=== PATIENT | female | born 1945 | race Caucasian/White ===

== ENCOUNTER 2020-05-18 10:41 | Emergency (ER) | payer MEDICARE, OTHER ==
--- NOTE | 2020-05-18 11:44 | ER Document Report ---
HPI - HPI Time Seen by Provider: 05/18/20 11:37 Notes: 74-year-old female patient presenting to the emergency department with complaints of left wrist pain. She states yesterday morning she tripped over her dog and fell backwards onto her outstretched arm. She did hit her head but denies any loss of consciousness or headache. She does take daily aspirin but does not take any other blood thinners. She is also complaining of pain near her tailbone. She declines any pain medications at this time. - ROS Systems Reviewed and Negative: Yes All other systems reviewed and negative - MUSCULOSKELETAL Musculoskeletal: REPORTS: Extremity pain Past Medical History - General Information source: Patient - Social History Smoking Status: Never Smoker Family History: Reviewed & Not Pertinent - Medical History Medical History: Negative Surgical Hx: Negative Vertical Provider Document - CONSTITUTIONAL Notes: PHYSICAL EXAMINATION: GENERAL: Well-appearing, well-nourished and in no acute distress. HEAD: Atraumatic, normocephalic. EYES: Pupils equal round extraocular movements intact, conjunctiva are normal. ENT: Nares patent no hemotympanum, no raccoon eyes, no daigle sign., NECK: Normal range of motion, no vertebral tenderness. LUNGS: No respiratory distress Musculoskeletal: Slightly limited range of motion to left wrist, normal sensation, strong radial pulse. Slight swelling and erythema noted. NEUROLOGICAL: Normal speech, normal gait. PSYCH: Normal mood, normal affect. SKIN: Warm, Dry, normal turgor, no rashes or lesions noted. Course - Re-evaluation Re-evalutation: Head CT 05/18/20 11:43 IMPRESSION: 1. No acute intracranial abnormality. 2. Chronic mild small vessel ischemic changes and atrophy. 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 EVIDENCE OF ACUTE STROKE: NO Wrist X-Ray 05/18/20 11:44 IMPRESSION: 1. No acute osseous findings. If symptoms persist, follow-up examination is suggested for re- evaluation. - Vital Signs Vital signs: Temp Pulse Resp BP Pulse Ox 98.2 F 95 20 127/70 H 100 05/18/20 11:07 05/18/20 11:07 05/18/20 11:07 05/18/20 11:07 05/18/20 11:07 Procedures - Immobilization Left wrist Pre-Proc Neuro Vasc Exam: Normal Immobilizer type: Cock-up Performed by: PCT Post-Proc Neuro Vasc Exam: Normal Discharge - Discharge Clinical Impression: Contusion of left wrist Qualifiers: Encounter type: initial encounter Qualified Code(s): S60.212A - Contusion of left wrist, initial encounter Head injury Qualifiers: Encounter type: initial encounter Qualified Code(s): S09.90XA - Unspecified injury of head, initial encounter Condition: Stable Disposition: HOME, SELF-CARE Additional Instructions: The CAT scan of your head was negative for any acute findings to include brain bleeding or skull fracture. The x-ray of your wrist also showed no fracture or dislocation of any bones. You likely suffered a sprain or contusion. Ice the area, elevate, take ibuprofen or Tylenol as needed for pain. Follow-up with your primary care provider in 3 to 5 days if pain not improving. Wear the brace this should help with comfort and support. Referrals: [facility]AL[facility],NO [Primary Care Provider] - Follow up as needed
--- NOTE | 2020-05-18 12:21 | RADIOLOGY REPORT (SQ) ---
EXAM DESCRIPTION: CT HEAD WITHOUT IMAGES COMPLETED DATE/TIME: 05/18/2020 12:02 pm REASON FOR STUDY: fall, hit head on cabinet COMPARISON: None. TECHNIQUE: Axial images acquired through the brain without intravenous contrast. Images reviewed wi th bone, brain and subdural windows. Additional sagittal and coronal reconstructions were generated. Images stored on PACS. All CT scanners at this facility use dose modulation, iterative reconstruction, and/or weight based d osing when appropriate to reduce radiation dose to as low as reasonably achievable (ALARA). [facility]: Dose Right [facility]: CareDose [facility]: Dose Right [facility]: Teradose 4D [facility]: TRIXandTRAX RADIATION DOSE: CT Rad equipment meets quality standard of care and radiation dose reduction techniq ues were employed. CTDIvol: 53.2 mGy. DLP: 1017 mGy-cm. LIMITATIONS: None. FINDINGS: VENTRICLES: Normal size and contour. The cisterns are patent. CEREBRUM: Old remote small left basal ganglia infarct. Chronic mild small vessel ischemic changes. No masses. No hemorrhage. No midline shift. No evidence for acute infarction. CEREBELLUM: No masses. No hemorrhage. No alteration of density. No evidence for acute infarction. EXTRAAXIAL SPACES: Age related involutional change. No fluid collections. No masses. ORBITS AND GLOBE: No intra- or extraconal masses. Normal contour of globe without masses. CALVARIUM: No fracture. PARANASAL SINUSES: No fluid or mucosal thickening. SOFT TISSUES: No mass or hematoma. OTHER: Mild atherosclerotic changes involving the cavernous portion of the internal carotid arteries and the intracranial portion of the vertebral arteries. The patient's dental artifact obscures detail somewhat in the region of the oral cavity. IMPRESSION: 1. No acute intracranial abnormality. 2. Chronic mild small vessel ischemic changes and atrophy. Old small remote left basal ganglia infa rct. EVIDENCE OF ACUTE STROKE: NO COMMENT: Quality ID # [id number]: Final reports with documentation of one or more dose reduction techniques (e.g., Automated exposure control, adjustment of the mA and/or kV according to patient size, use of iterative reconstruction technique) TECHNICAL DOCUMENTATION: JOB ID: [id number] 2010 [employer]- All Rights Reserved Reading location - IP/workstation name: [email or web address]
--- NOTE | 2020-05-18 12:24 | RADIOLOGY REPORT (SQ) ---
EXAM DESCRIPTION: WRIST LEFT 3 VIEWS IMAGES COMPLETED DATE/TIME: 05/18/2020 12:01 pm REASON FOR STUDY: fall L wrist pain COMPARISON: None. NUMBER OF VIEWS: Three views. TECHNIQUE: AP, lateral, and oblique radiographic images acquired of the left wrist. LIMITATIONS: None. FINDINGS: MINERALIZATION: Normal. BONES: Deformity medial aspect of the scaphoid bone, probably related prior remote injury. No acute fracture or dislocation. Normal alignment. SOFT TISSUES: No soft tissue swelling. No foreign body. OTHER: No other significant finding. IMPRESSION: 1. No acute osseous findings. If symptoms persist, follow-up examination is suggested for re- evaluation. TECHNICAL DOCUMENTATION: JOB ID: [id number] 2010 [employer]- All Rights Reserved Reading location - IP/workstation name: [email or web address]
[2020-05-18 13:56] VITALS: BP 126/68
== END 2020-05-18 14:15 | disposition home or self-care (01) ==
LOC: ER 10:41
DX: S60.212A Contusion of left wrist, initial encounter (principal); S09.90XA Unspecified injury of head, initial encounter; M25.532 Pain in left wrist; M53.3 Sacrococcygeal disorders, not elsewhere classified; W01.0XXA Fall on same level from slipping, tripping and stumbling without subsequent striking against object, initial encounter
CPT/HCPCS: 70450; 99284